=== PATIENT | female | born 1950 ===

== ENCOUNTER 2018-02-27 16:45 | Inpatient (IN) | payer MEDICARE ==
[2018-02-27 17:30] LABS: BASO # 0.1 K/uL (0.0-0.2); BASO % 0.5 % (0.0-2.0); EOS # 0.1 K/uL (0.0-0.7); EOS % 0.5 % (0.0-4.0); HEMOGLOBIN 13.9 g/dL (12.0-16.0); LYMPH # 1.8 K/uL (1.0-4.3); LYMPH % 9.7 % (20.0-40.0); MEAN CORPUSCULAR HEMOGLOBIN 29.6 pg (27.0-31.0); MEAN CORPUSCULAR HGB CONC 32.5 g/dL (33.0-37.0); MEAN PLATELET VOLUME 10.2 fl (7.2-11.7); MONO # 0.8 K/uL (0.0-0.8); MONO % 4.3 % (0.0-10.0); NEUT # 15.7 K/uL (1.8-7.0); PLATELET COUNT 232 K/uL (130-400); RBC 4.69 Mil/uL (3.80-5.20); RED CELL DISTRIBUTION WIDTH 15.2 % (11.5-14.5); WHITE BLOOD COUNT 18.5 K/uL (4.8-10.8)
[2018-02-27 17:37] LABS: INR 0.9; PROTHROMBIN TIME 10.5 Seconds (9.8-13.1)
[2018-02-27 17:42] LABS: ALB/GLOB RATIO 1.2 (1.0-2.1); ALBUMIN 3.8 g/dL (3.5-5.0); ALT/SGPT 71 U/L (9-52); AST/SGOT 36 U/L (14-36); BLOOD UREA NITROGEN 32 mg/dl (7-17); CALCIUM 9.6 mg/dL (8.4-10.2); GFR NON-AFRICAN AMERICAN > 60
--- NOTE | 2018-02-27 17:45 | ED PDOC ---
HPI: SOB/CHF/COPD Time Seen by Provider: 02/27/18 16:53 Chief Complaint (Nursing): Shortness Of Breath Chief Complaint (Provider): Shortness of Breath History Per: Patient History/Exam Limitations: no limitations Onset/Duration Of Symptoms: Hrs Additional Complaint(s): Deo Curtis is a 67 year old female with a past medical history of hypertension and asthma who was brought to the ED by paramedics from [facility] for worsening shortness of breath. Patient was given Nitro, Lasix, and placed on CPAP by medics. Upon arrival, she states that she is feeling much better and denies any chest pain or respiratory distress. Patient offers no other medical complaints at this time. PMD: Ekta Miller Past Medical History Reviewed: Historical Data, Nursing Documentation, Vital Signs Vital Signs: Last Vital Signs Temp Pulse Resp 19 02/27/18 16:55 BP Pulse Ox 100 02/27/18 16:55 - Medical History PMH: Anxiety, Arthritis, Asthma, Bronchitis, Depression, Fractures (Left wrist and right ankle), HTN, Chronic Pain (abdominal pain causing intermittent intractable vomit) Denies: Chronic Kidney Disease - Surgical History Surgical History: - Family History Family History: States: Unknown Family Hx - Social History Current smoker - smoking cessation education provided: No Alcohol: None Drugs: Denies - Immunization History Hx Tetanus Toxoid Vaccination: Yes Hx Influenza Vaccination: No Hx Pneumococcal Vaccination: No - Home Medications Home Medications: Ambulatory Orders Medication Instructions Recorded Acetaminophen/Oxycodone Hydr 1 tab PO Q6 PRN 02/27/18 [Percocet 10/325 mg Tab] Albuterol 0.083% [Albuterol 0.083% 3 ml IH Q8 PRN 02/27/18 Inhal Evette (2.5 mg/3 ml) UD] Albuterol Sulfate [Ventolin Hfa] 2 puff IH Q6 PRN 02/27/18 Alprazolam [Xanax] 2 mg PO Q12 02/27/18 Dexlansoprazole [Dexilant] 60 mg PO DAILY 02/27/18 Escitalopram [Lexapro] 10 mg PO DAILY 02/27/18 Fluticasone Nasal [Flonase] 2 spray FELIX DAILY PRN 02/27/18 Fluticasone/Salmeterol [Advair 1 puff IH Q12 02/27/18 250-50 Diskus] Gabapentin [Neurontin] 300 mg PO HS PRN 02/27/18 Lisinopril/Hydrochlorothiazide 1 tab PO DAILY 02/27/18 [Lisinopril-Hctz 20-25 mg Tab] Metoprolol Succinate XL [Toprol XL] 50 mg PO DAILY 02/27/18 Montelukast [Singulair] 10 mg PO HS 02/27/18 QUEtiapine [Seroquel] 100 mg PO HS 02/27/18 Simvastatin [Zocor] 20 mg PO HS 02/27/18 Umeclidinium [place] [Incruse 1 puff IH DAILY 02/27/18 Ellipta] Zolpidem [Ambien] 10 mg PO HS 02/27/18 amLODIPine [Norvasc] 10 mg PO DAILY 02/27/18 - Allergies Allergies/Adverse Reactions: Allergies Allergy/AdvReac Type Severity Reaction Status Date / Time No Known Allergies Allergy Unverified 02/27/18 16:49 Review of Systems ROS Statement: Except As Marked, All Systems Reviewed And Found Negative Cardiovascular: Negative for: Chest Pain Respiratory: Positive for: Shortness of Breath Physical Exam - Reviewed Nursing Documentation Reviewed: Yes Vital Signs Reviewed: Yes - Physical Exam Appears: Positive for: Well, Non-toxic, No Acute Distress Head Exam: Positive for: ATRAUMATIC, NORMAL INSPECTION, NORMOCEPHALIC Skin: Positive for: Normal Color, Warm, DRY Eye Exam: Positive for: EOMI, Normal appearance, PERRL ENT: Positive for: Normal ENT Inspection Neck: Positive for: Normal, Painless ROM Cardiovascular/Chest: Positive for: Regular Rate, Rhythm. Negative for: Murmur Respiratory: Positive for: Normal Breath Sounds, Other (speaking full sentences ). Negative for: Respiratory Distress Gastrointestinal/Abdominal: Positive for: Normal Exam, Soft. Negative for: Tenderness Back: Positive for: Normal Inspection. Negative for: L CVA Tenderness, R CVA Tenderness Extremity: Positive for: Normal ROM. Negative for: Deformity, Swelling Neurologic/Psych: Positive for: Alert, Oriented. Negative for: Motor/Sensory Deficits - Laboratory Results Result Diagrams: 03/04/18 04:25 03/04/18 04:25 - ECG O2 Sat by Pulse Oximetry: 100 (RA) Pulse Ox Interpretation: Normal - Critical Care Total Time (In Min): 30 Medical Decision Making Medical Decision Making: Time: 16:55 Impression: Asthma, CHF Plan: --EKG --B-Type Natriuretic Peptide --CMP --Magnesium --Troponin --ED Urine Dipstick --CBC --Coags --Chest X-Ray --Blood Culture --Urinalysis EXAM: CR Chest, 1 View. CLINICAL HISTORY: Sob COMPARISON: None provided. FINDINGS: LUNGS: There is evidence for pulmonary venous congestion compatible with CHF. PLEURAL SPACES: No evidence of pleural effusion or pneumothorax. MEDIASTINUM: The cardiac silhouette is enlarged. BONES: No aggressive appearing osseous lesion seen. IMPRESSION: 1. The cardiac silhouette is enlarged. 2. There is evidence for pulmonary venous congestion compatible with CHF. Electronically signed on Feb 27, 2018 9:18:26 PM EST by: Jason Peña M.D., RAVINDRA Certified By [employer] Fellowship Trained MRI and CT Specialist -- Scribe Attestation: Documented by Maryellen Vines, acting as a scribe for Elizabeth Villatoro MD. Provider Scribe Attestation: All medical record entries made by the Scribe were at my direction and personally dictated by me. I have reviewed the chart and agree that the record accurately reflects my personal performance of the history, physical exam, medical decision making, and the department course for this patient. I have also personally directed, reviewed, and agree with the discharge instructions and disposition. Disposition - Clinical Impression Clinical Impression: CHF exacerbation, Leukocytosis - Patient ED Disposition Is Patient to be Admitted: Yes - Disposition Disposition Time: 22:13 Condition: STABLE - Pt Status Changed To: Hospital Disposition Of: Inpatient - Admit Certification Admit to Inpatient:: After my assessment, the patient will require hospitalization for at least two midnights. This is because of the severity of symptoms shown, intensity of services needed, and/or the medical risk in this patient being treated as an outpatient. - POA Present On Arrival: None
[2018-02-27 17:53] LABS: B-TYPE NATRIURETIC PEPTIDE 831 pg/ml (0-900)
[2018-02-27 18:02] LABS: URINE COLOR COLORLESS (YELLOW)
[2018-02-27 18:03] LABS: URINE BILIRUBIN NEGATIVE (NEGATIVE); URINE BLOOD NEGATIVE (NEGATIVE); URINE CLARITY CLEAR (Clear); URINE GLUCOSE (UA) NEG (NEGATIVE); URINE LEUKOCYTE ESTERASE NEG Leu/uL (Negative); URINE PROTEIN NEGATIVE (NEGATIVE); URINE UROBILINOGEN 0.2-1.0 mg/dL (0.2-1.0)
[2018-02-27 18:22] LABS: BANDS 1 % (0-2); METAMYELOCYTE 1 % (0-0); MONOCYTE 6 % (0-10); TOTAL CELLS COUNTED 100
[2018-02-27 18:23] LABS: LYMPHOCYTE 12 % (20-50); NEUTROPHIL 80 % (42-75); PLATELET ESTIMATE NORMAL (NORMAL)
[2018-02-27 18:32] LABS: PARTIAL THROMBOPLASTIN TIME 25.3 Seconds (25.6-37.1)
[2018-02-27] MEDS ORDERED: Azithromycin 500 MG in Sodium Chloride 0.9% 250 ML IV STA (19:04)
[2018-02-27] MEDS ORDERED: cefTRIAXone (Rocephin) 1 gm Inj ONE (19:48)
[2018-02-27] MEDS ORDERED: Nitroglycerin 2% 15 INCH/30 GM TUBE TOP STA (20:03)
[2018-02-27] MEDS ORDERED: Nitroglycerin 2% Ointment Foilpak UD TOP ONE (20:11)
[2018-02-27] MEDS ORDERED: Nitroglycerin 2% Ointment Foilpak UD TOP STA (20:18)
[2018-02-27] MEDS ORDERED: Azithromycin 500 MG IV IVPB ONE (21:35)
[2018-02-27] MEDS ORDERED: Albuterol-Ipratrop 3 mg / 0.5 (3 ml) UD INH STA (23:00)
[2018-02-28] MEDS ORDERED: Nitroglycerin 2% Ointment Foilpak UD TOP STA (02:11)
[2018-02-28] MEDS ORDERED: Albuterol-Ipratrop 3 mg / 0.5 (3 ml) UD INH PRN (06:02)
[2018-02-28 07:41] LABS: BASO # 0.1 K/uL (0.0-0.2); BASO % 0.4 % (0.0-2.0); LYMPH % 6.9 % (20.0-40.0); MEAN CELL VOLUME 91.2 fl (81.0-99.0); MEAN CORPUSCULAR HEMOGLOBIN 29.7 pg (27.0-31.0); MEAN CORPUSCULAR HGB CONC 32.5 g/dL (33.0-37.0); MEAN PLATELET VOLUME 10.5 fl (7.2-11.7); MONO # 0.6 K/uL (0.0-0.8); NEUT # 12.5 K/uL (1.8-7.0); NEUT % 88.7 % (50.0-75.0); RBC 4.04 Mil/uL (3.80-5.20); RED CELL DISTRIBUTION WIDTH 14.8 % (11.5-14.5); WHITE BLOOD COUNT 14.1 K/uL (4.8-10.8)
[2018-02-28 07:51] LABS: LDL CHOLESTEROL 168 mg/dL (0-129)
[2018-02-28 07:58] LABS: ALB/GLOB RATIO 1.2 (1.0-2.1); ALBUMIN 3.2 g/dL (3.5-5.0); ALT/SGPT 50 U/L (9-52); AST/SGOT 21 U/L (14-36); BLOOD UREA NITROGEN 33 mg/dl (7-17); CALCIUM 9.3 mg/dL (8.4-10.2); GFR NON-AFRICAN AMERICAN > 60; HDL CHOLESTEROL 104 MG/DL (30-70)
[2018-02-28 07:59] LABS: T4 5.39 ug/dl (5.5-11.0)
[2018-02-28 08:13] LABS: T3 0.566 nmol/L (1.49-2.60)
[2018-02-28] MEDS: Fluticasone-Salmeterol 250-50mcg Diskus IH SCH (08:55)
[2018-02-28] MEDS: Pantoprazole 40 mg EC Tab PO SCH (08:57)
[2018-02-28] MEDS ORDERED: Metoprolol Succinate 50 mg XL Tab PO SCH (09:00)
--- NOTE | 2018-02-28 09:10 | CP.PCM.HP ---
<Sultan Isela - Last Filed: 02/28/18 10:18> History of Present Illness - History of Present Illness History of Present Illness: CC: shortness of breath HPI: 67 year old female with PMHx HTN, Asthma and depression brought in by EMS from her doctors office for worsening shortness of breath, cough and leg swelling for 1 week. Patient reports she went to [place] [facility] few days ago with similar symptoms and was discharged home. States since then her shortness of breath worsened. Denies any chest pain, nausea, vomiting, fever or chills. Denies any hx CHF in the past. Patient received Nitro, Lasix and placed on CPAP by medics. In ER, patient received duoneb, azithromycin and ceftriaxone. CXR shows enlarged cardiac silhouette and evidence of pulmonary venous congestion compatible with CHF. ROS: All 12 systems reviewed and negative except as mentioned above. PMHx: HTN, Asthma, depression SHx: C-sections x 3 Social hx: Denies smoking cigarettes, drinking EtOH or using drugs Family hx: mother: stroke; brother: stroke and CAD Allergies: NKDA Medications: reviewed Present on Admission - Present on Admission Any Indicators Present on Admission: No Review of Systems - Review of Systems All systems: reviewed and no additional remarkable complaints except Past Patient History - Past Medical History & Family History Past Medical History?: Yes - Past Social History Alcohol: None Drugs: Denies - CARDIAC Hx Hypertension: Yes - PULMONARY Hx Asthma: Yes Hx Bronchitis: Yes - NEUROLOGICAL Hx Neurological Disorder: No - HEENT Hx HEENT Problems: No - RENAL Hx Chronic Kidney Disease: No - ENDOCRINE/METABOLIC Hx Endocrine Disorders: No - HEMATOLOGICAL/ONCOLOGICAL Hx Blood Disorders: No - INTEGUMENTARY Hx Dermatological Problems: No - MUSCULOSKELETAL/RHEUMATOLOGICAL Hx Arthritis: Yes Hx Fractures: Yes (Left wrist and right ankle) - GASTROINTESTINAL Hx Gastrointestinal Disorders: No - GENITOURINARY/GYNECOLOGICAL Hx Genitourinary Disorders: No - PSYCHIATRIC Hx Anxiety: Yes Hx Depression: Yes - SURGICAL HISTORY Hx Surgeries: Yes Hx Section: Yes (3 CS) - ANESTHESIA Hx Anesthesia: Yes Hx Anesthesia Reactions: No Hx Malignant Hyperthermia: No Meds Allergies/Adverse Reactions: Allergies Allergy/AdvReac Type Severity Reaction Status Date / Time No Known Allergies Allergy Unverified 02/27/18 16:49 Physical Exam - Constitutional Appears: Non-toxic, No Acute Distress, Other (obese) - Head Exam Head Exam: NORMAL INSPECTION - Eye Exam Eye Exam: Normal appearance - ENT Exam ENT Exam: Mucous Membranes Moist - Neck Exam Neck exam: Positive for: Normal Inspection. Negative for: Meningismus - Respiratory Exam Respiratory Exam: Prolonged Expiratory Phase. absent: Accessory Muscle Use, Rhonchi, Wheezes, Respiratory Distress Additional comments: on [place] oxygen, speaking full sentences during interview. - Cardiovascular Exam Cardiovascular Exam: REGULAR RHYTHM, +S1, +S2 - GI/Abdominal Exam GI & Abdominal Exam: Normal Bowel Sounds, Soft. absent: Tenderness - Extremities Exam Extremities exam: Positive for: pedal edema (2+ (Left>Right)). Negative for: calf tenderness - Neurological Exam Neurological exam: Alert, Oriented x3 - Psychiatric Exam Psychiatric exam: Normal Affect, Normal Mood - Skin Skin Exam: Normal Color, Warm Results - Vital Signs Recent Vital Signs: Last Vital Signs Temp 97.6 F 02/28/18 06:18 Pulse 83 02/28/18 09:00 Resp 16 02/28/18 09:00 BP 137/65 02/28/18 09:00 Pulse Ox 100 02/28/18 09:00 - Labs Result Diagrams: 02/28/18 06:20 02/28/18 06:20 Labs: Laboratory Results - last 24 hr 02/27/18 02/27/18 02/27/18 17:25 17:25 17:25 WBC 18.5 H RBC 4.69 Hgb 13.9 Hct 42.6 MCV 91.0 MCH 29.6 MCHC 32.5 L RDW 15.2 H Plt Count 232 MPV 10.2 Neut % (Auto) 85.0 H Lymph % (Auto) 9.7 L Fleming % (Auto) 4.3 Eos % (Auto) 0.5 Baso % (Auto) 0.5 Neut # (Auto) 15.7 H Lymph # (Auto) 1.8 Fleming # (Auto) 0.8 Eos # (Auto) 0.1 Baso # (Auto) 0.1 Neutrophils % (Manual) 80 H Band Neutrophils % 1 Lymphocytes % (Manual) 12 L Monocytes % (Manual) 6 Metamyelocytes % 1 H Platelet Estimate Normal PT INR APTT Sodium 141 Potassium 4.1 Chloride 104 Carbon Dioxide 31 H Anion Gap 10 BUN 32 H Creatinine 0.8 Est GFR ( Amer) > 60 Est GFR (Non-Af Amer) > 60 Random Glucose 118 H Calcium 9.6 Magnesium 2.4 H Total Bilirubin 0.4 AST 36 ALT 71 H Alkaline Phosphatase 68 Troponin I 0.0140 NT-Pro-B Natriuret Pep 831 Total Protein 6.9 Albumin 3.8 Globulin 3.1 Albumin/Globulin Ratio 1.2 Triglycerides Cholesterol LDL Cholesterol Direct HDL Cholesterol Vitamin B12 Free T4 Thyroxine (T4) Total T3 TSH 3rd Generation Urine Color Urine Clarity Urine pH Ur Specific [place] Urine Protein Urine Glucose (UA) Urine Ketones Urine Blood Urine Nitrate Urine Bilirubin Urine Urobilinogen Ur Leukocyte Esterase Urine RBC (Auto) Urine Microscopic WBC 02/27/18 02/27/18 02/28/18 17:25 17:40 06:20 WBC 14.1 H RBC 4.04 Hgb 12.0 Hct 36.9 MCV 91.2 MCH 29.7 MCHC 32.5 L RDW 14.8 H Plt Count 198 MPV 10.5 Neut % (Auto) 88.7 H Lymph % (Auto) 6.9 L Fleming % (Auto) 4.0 Eos % (Auto) 0.0 Baso % (Auto) 0.4 Neut # (Auto) 12.5 H Lymph # (Auto) 1.0 Fleming # (Auto) 0.6 Eos # (Auto) 0.0 Baso # (Auto) 0.1 Neutrophils % (Manual) Band Neutrophils % Lymphocytes % (Manual) Monocytes % (Manual) Metamyelocytes % Platelet Estimate PT 10.5 INR 0.9 APTT 25.3 L Sodium Potassium Chloride Carbon Dioxide Anion Gap BUN Creatinine Est GFR ( Amer) Est GFR (Non-Af Amer) Random Glucose Calcium Magnesium Total Bilirubin AST ALT Alkaline Phosphatase Troponin I NT-Pro-B Natriuret Pep Total Protein Albumin Globulin Albumin/Globulin Ratio Triglycerides Cholesterol LDL Cholesterol Direct HDL Cholesterol Vitamin B12 Free T4 Thyroxine (T4) Total T3 TSH 3rd Generation Urine Color Colorless Urine Clarity Clear Urine pH 8.0 Ur Specific [place] 1.008 Urine Protein Negative Urine Glucose (UA) Neg Urine Ketones Negative Urine Blood Negative Urine Nitrate Negative Urine Bilirubin Negative Urine Urobilinogen 0.2-1.0 Ur Leukocyte Esterase Neg Urine RBC (Auto) 1 Urine Microscopic WBC 1 02/28/18 02/28/18 06:20 06:20 WBC RBC Hgb Hct MCV MCH MCHC RDW Plt Count MPV Neut % (Auto) Lymph % (Auto) Fleming % (Auto) Eos % (Auto) Baso % (Auto) Neut # (Auto) Lymph # (Auto) Fleming # (Auto) Eos # (Auto) Baso # (Auto) Neutrophils % (Manual) Band Neutrophils % Lymphocytes % (Manual) Monocytes % (Manual) Metamyelocytes % Platelet Estimate PT INR APTT Sodium 138 Potassium 4.3 Chloride 100 Carbon Dioxide 33 H Anion Gap 9 L BUN 33 H Creatinine 0.7 Est GFR ( Amer) > 60 Est GFR (Non-Af Amer) > 60 Random Glucose 166 H Calcium 9.3 Magnesium Total Bilirubin 0.4 AST 21 ALT 50 Alkaline Phosphatase 52 Troponin I NT-Pro-B Natriuret Pep Total Protein 5.9 L Albumin 3.2 L Globulin 2.7 Albumin/Globulin Ratio 1.2 Triglycerides 99 Cholesterol 263 H LDL Cholesterol Direct 168 H HDL Cholesterol 104 H Vitamin B12 242 Free T4 0.79 Thyroxine (T4) 5.39 L Total T3 0.566 L TSH 3rd Generation 0.06 L Urine Color Urine Clarity Urine pH Ur Specific [place] Urine Protein Urine Glucose (UA) Urine Ketones Urine Blood Urine Nitrate Urine Bilirubin Urine Urobilinogen Ur Leukocyte Esterase Urine RBC (Auto) Urine Microscopic WBC Assessment & Plan - Assessment and Plan (Free Text) Assessment: 67 year old female with PMHx HTN, Asthma and depression brought in by EMS from her doctors office for worsening shortness of breath, cough and leg swelling for 1 week. In ER, patient received duoneb, azithromycin and ceftriaxone. CXR shows enlarged cardiac silhouette and evidence of pulmonary venous congestion compatible with CHF. Patient is admitted for worsening shortness of breath. Plan: Shortness of breath likely secondary to new onset CHF vs asthma exacerbation. -Admit to Telemetry -Stable BP now (elevated BP in ER), afebrile -wbc 18.5, repeat 14.1 this morning -EKG: NSR @[address]/T waves. -CXR: IMPRESSION: The cardiac silhouette is enlarged. There is evidence for pulmonary venous congestion compatible with CHF. -ProBNP 831 -Troponin I x 1 neg -s/p ceftriaxone and azithromycin in ER -c/w duoneb q6hr prn -Cardiology consult, Dr. Whiting, f/u rec - F/U LABS, echocardiogram HTN -resume home medications -Asthma -resume home medications Depression -Resume home medications Code status -Full code Patient seen, examined and plan discussed with Dr. Greg Weiss, [id number] <Sincere Garza - Last Filed: 03/01/18 13:25> Results - Vital Signs Recent Vital Signs: Last Vital Signs Temp 98 F 03/01/18 12:40 Pulse 81 03/01/18 12:40 Resp 20 03/01/18 12:40 BP 143/81 03/01/18 12:40 Pulse Ox 98 03/01/18 12:40 - Labs Result Diagrams: 03/01/18 04:30 03/01/18 04:30 Labs: Laboratory Results - last 24 hr 02/28/18 02/28/18 03/01/18 06:20 17:00 04:30 WBC 10.2 RBC 3.88 Hgb 11.7 L Hct 35.3 MCV 91.0 MCH 30.3 MCHC 33.3 RDW 15.1 H Plt Count 178 MPV 10.3 Neut % (Auto) 78.1 H Lymph % (Auto) 15.4 L Fleming % (Auto) 5.8 Eos % (Auto) 0.3 Baso % (Auto) 0.4 Neut # (Auto) 8.0 H Lymph # (Auto) 1.6 Fleming # (Auto) 0.6 Eos # (Auto) 0.0 Baso # (Auto) 0.0 pCO2 pO2 HCO3 ABG pH ABG Total CO2 ABG O2 Saturation ABG Base Excess Erik Test ABG Potassium A-a O2 Difference Glucose Lactate FiO2 Sodium Potassium Chloride Carbon Dioxide Anion Gap BUN Creatinine Est GFR ( Amer) Est GFR (Non-Af Amer) Random Glucose Calcium Phosphorus Magnesium Total Bilirubin AST ALT Alkaline Phosphatase Troponin I < 0.0120 Total Protein Albumin Globulin Albumin/Globulin Ratio Free T3 pg/mL 1.94 L Arterial Blood Potassium 03/01/18 03/01/18 04:30 08:28 WBC RBC Hgb Hct MCV MCH MCHC RDW Plt Count MPV Neut % (Auto) Lymph % (Auto) Fleming % (Auto) Eos % (Auto) Baso % (Auto) Neut # (Auto) Lymph # (Auto) Fleming # (Auto) Eos # (Auto) Baso # (Auto) pCO2 44 pO2 79 L HCO3 28.9 H ABG pH 7.44 ABG Total CO2 31.3 H ABG O2 Saturation 97.7 ABG Base Excess 5.1 H Erik Test Yes ABG Potassium 3.6 A-a O2 Difference 16.0 Glucose 158 H Lactate 2.5 H FiO2 21.0 Sodium 136 136.0 Potassium 4.2 Chloride 99 107.0 Carbon Dioxide 31 H Anion Gap 10 BUN 33 H Creatinine 0.9 Est GFR ( Amer) > 60 Est GFR (Non-Af Amer) > 60 Random Glucose 101 Calcium 9.5 Phosphorus 5.2 H Magnesium 2.4 H Total Bilirubin 0.5 AST 19 ALT 45 Alkaline Phosphatase 49 Troponin I Total Protein 5.7 L Albumin 3.1 L Globulin 2.6 Albumin/Globulin Ratio 1.2 Free T3 pg/mL Arterial Blood Potassium 3.6 Assessment & Plan - Assessment and Plan (Free Text) Assessment: Patient was personally seen and examined by me in rounds with residents. Available labs and diagnostic data reviewed. Case, Patient's condition and management plan discussed with residents in alf ds. Agree with resident's progress note. Plan: As ordered.
--- NOTE | 2018-02-28 09:15 | CARD ---
APPROVED REPORT Date of service: 02/27/2018 EKG Measurement Heart [id number] <Conclusion> Normal sinus rhythm Normal ECG
--- NOTE | 2018-02-28 11:16 | RAD ---
Date of service: 02/27/2018 HISTORY: SOB COMPARISON: No prior. FINDINGS: LUNGS: No active pulmonary disease. PLEURA: No significant pleural effusion identified, no pneumothorax apparent. CARDIOVASCULAR: No atherosclerotic calcification present No radiographic findings to suggest acute or significant cardiovascular disease. OSSEOUS STRUCTURES: No significant abnormalities. VISUALIZED UPPER ABDOMEN: Normal. OTHER FINDINGS: None. IMPRESSION: No active disease.
[2018-02-28] MEDS ORDERED: Albuterol-Ipratrop 3 mg / 0.5 (3 ml) UD ONE (16:59)
[2018-02-28] MEDS: Enoxaparin 40 mg Syringe SC SCH (17:01)
[2018-02-28] MEDS: Albuterol-Ipratrop 3 mg / 0.5 (3 ml) UD INH SCH (17:07)
--- NOTE | 2018-03-01 00:02 | CON ---
DATE: 02/28/2018 CARDIAC CONSULTATION REASON FOR CONSULTATION: Shortness of breath. HISTORY OF PRESENT ILLNESS: The patient is a 67-year-old female who has a history of bronchial asthma, presents with shortness of breath and cough. The patient has no known prior cardiac history except for history of hypertension. The patient denies any chest pain at this time. The patient complains of bilateral leg swelling. SOCIAL HISTORY: Nonsmoker, nondrinker. MEDICATIONS: Albuterol inhaler every 4-6 hours, hydrochlorothiazide 25 mg once a day, Lexapro 10 mg once a day, Lipitor 20 mg once a day, Norvasc 10 mg once a day, Neurontin 300 mg at bedtime, Seroquel 100 mg once a day, Protonix 40 mg once a day, Toprol-XL 50 mg once a day, Zestril 20 mg once a day. REVIEW OF SYSTEMS: No fever or chills. No dizziness or syncope. No retrosternal chest pain. PHYSICAL EXAMINATION: GENERAL: The patient is an elderly female who does not appear to be in acute distress. VITAL SIGNS: Blood pressure 137/65, heart rate 83, temperature 97.6, respirations 16. HEENT: Normocephalic. CHEST: Minimal bilateral rhonchi. HEART: S1 and S2 are regular. ABDOMEN: Soft. EXTREMITIES: 1+ pitting edema. LABORATORY DATA: Recent hemoglobin and hematocrit are 12 and 36.9, white count 14.1, platelet count 198,000. Yesterday's white count was 18.5. Today's SMA-7: Sodium 138, potassium 4.2, chloride 100, CO2 of 32, glucose 166, BUN 33, creatinine 0.7. cholesterol is 168, total cholesterol 263, and HDL cholesterol is 104. These three are elevated. TSH level is 0.06, thyroxine 5.39, and total T3 is 0.566. These three are below normal. Free T4 is within normal limit. INR 0.9. EKG revealed normal sinus rhythm at a rate of 88. Chest x-ray revealed mild cardiomegaly and prominent bronchovascular markings. ASSESSMENT: 1. Exacerbation of bronchial asthma. 2. Rule out right-sided failure. 3. Consider underlying pneumonia. 4. Hyperlipidemia. 5. Rule out deep venous thrombosis. 6. Systemic hypertension. RECOMMENDATIONS: Continue current hydrochlorothiazide 25 mg once a day, Lipitor 20 mg once a day, Norvasc 10 mg once a day. May hold Toprol-XL for now. Continue Zestril 20 mg once a day. Start Lovenox 40 mg subcutaneously daily. Obtain venous Doppler of lower extremities and will review the echocardiographic study performed today. Andrea Whiting MD
[2018-03-01] MEDS: Fluticasone-Salmeterol 250-50mcg Diskus IH SCH ×3 (00:15→21:09)
--- NOTE | 2018-03-01 02:35 | CARD ---
APPROVED REPORT Date of service: 02/28/2018 EXAM: Two-dimensional and M-mode echocardiogram with Doppler and color Doppler. Other Information Quality : AverageRhythm : NSR INDICATION Dyspnea 2D DIMENSIONS IVSd1.32 (0.7-1.1cm)LVDd4.03 (3.9-5.9cm) LVOT Diameter2.00 (1.8-2.4cm)PWd1.14 (0.7-1.1cm) IVSs1.32 (0.8-1.2cm)LVDs3.03 (2.5-4.0cm) FS (%) 24.7 %PWs1.06 (0.8-1.2cm) M-Mode DIMENSIONS Left Atrium (MM)4.06 (2.5-4.0cm)IVSd0.91 (0.7-1.1cm) Aortic Root3.56 (2.2-3.7cm)LVDd4.50 (4.0-5.6cm) Aortic Cusp Exc.1.56 (1.5-2.0cm)PWd1.13 (0.7-1.1cm) IVSs1.22 cmFS (%) 43 % LVDs2.56 (2.0-3.8cm)PWs1.44 cm Mitral Valve MV E Wewiuifc33.1cm/sMV DECEL [id number] A Etvnxtcu43.0cm/s MV URO60uoX/A ratio0.8MVA (PHT)3.70cm2 TDI Lateral E' Peak V9.37cm/sMedial E' Peak V9.78cm/sE/Lateral E'8.0 E/Medial E'7.7 LEFT VENTRICLE The left ventricle is normal size. There is borderline to mild concentric left ventricular hypertrophy. The left ventricular systolic function is normal. The estimated ejection fraction is 55-60% No regional wall motion abnormalities noted.. Transmitral Doppler flow pattern is Grade I-abnormal relaxation pattern. No left ventricle thrombus noted on this study. There is no ventricular septal defect visualized. There is no left ventricular aneurysm. There is no mass noted in the left ventricle. RIGHT VENTRICLE The right ventricle is normal size. There is normal right ventricular wall thickness. The right ventricular systolic function is normal. ATRIA The left atrium is mildly dilated. The right atrium size is normal. The interatrial septum is intact with no evidence for an atrial septal defect. AORTIC VALVE The aortic valve is normal in structure. No aortic regurgitation is present. There is no aortic valvular stenosis. There is no aortic valvular vegetation. MITRAL VALVE The mitral valve is normal in structure. There is no evidence of mitral valve prolapse. There is no mitral valve stenosis. There is no mitral valve regurgitation noted. TRICUSPID VALVE The tricuspid valve is normal in structure. There is no tricuspid valve regurgitation noted. There is no tricuspid valve prolapse or vegetation. There is no tricuspid valve stenosis. PULMONIC VALVE The pulmonary valve is normal in structure. There is no pulmonic valvular regurgitation. There is no pulmonic valvular stenosis. GREAT VESSELS The aortic root is normal in size. The ascending aorta is normal in size. The pulmonary artery is normal. The IVC is normal in size and collapses >50% with inspiration. PERICARDIAL EFFUSION There is no pericardial effusion. There is no pleural effusion. <Conclusion> There is borderline to mild concentric left ventricular hypertrophy. The estimated ejection fraction is 55-60% Transmitral Doppler flow pattern is Grade I-abnormal relaxation pattern. The left atrium is mildly dilated. There is no tricuspid valve regurgitation noted.
[2018-03-01] MEDS: Albuterol-Ipratrop 3 mg / 0.5 (3 ml) UD INH SCH ×4 (02:41→19:00)
[2018-03-01 05:46] LABS: BASO % 0.4 % (0.0-2.0); EOS % 0.3 % (0.0-4.0); HEMOGLOBIN 11.7 g/dL (12.0-16.0); LYMPH # 1.6 K/uL (1.0-4.3); LYMPH % 15.4 % (20.0-40.0); MEAN CORPUSCULAR HEMOGLOBIN 30.3 pg (27.0-31.0); MEAN CORPUSCULAR HGB CONC 33.3 g/dL (33.0-37.0); MEAN PLATELET VOLUME 10.3 fl (7.2-11.7); MONO # 0.6 K/uL (0.0-0.8); MONO % 5.8 % (0.0-10.0); NEUT % 78.1 % (50.0-75.0); NRBC % 0.1 % (0.0-0.0); RBC 3.88 Mil/uL (3.80-5.20); RED CELL DISTRIBUTION WIDTH 15.1 % (11.5-14.5); WHITE BLOOD COUNT 10.2 K/uL (4.8-10.8)
[2018-03-01 05:59] LABS: ALB/GLOB RATIO 1.2 (1.0-2.1); ALBUMIN 3.1 g/dL (3.5-5.0); ALT/SGPT 45 U/L (9-52); AST/SGOT 19 U/L (14-36); BLOOD UREA NITROGEN 33 mg/dl (7-17); CALCIUM 9.5 mg/dL (8.4-10.2); GFR NON-AFRICAN AMERICAN > 60
--- NOTE | 2018-03-01 08:54 | CP.PCM.PN ---
<OlneyGarret willtan - Last Filed: 03/01/18 08:51> Subjective - Date & Time of Evaluation Date of Evaluation: 03/01/18 Time of Evaluation: 07:45 - Subjective Subjective: Patient seen and examined with Dr. Garza this morning. No acute overnight event. Reports she is feeling better with improved shortness of breath and cough. Denies any fever, chills, chest pain or calf pain. Objective - Vital Signs/Intake and Output Vital Signs (last 24 hours): Temp Pulse Resp BP Pulse Ox 97.9 F 78 20 113/68 97 03/01/18 08:46 03/01/18 08:46 03/01/18 08:46 03/01/18 08:46 03/01/18 08:46 - Medications Medications: Current Medications Acetaminophen (Tylenol 325mg Tab) 650 mg PO Q6 PRN PRN Reason: Headache Last Admin: 02/28/18 12:03 Dose: 650 mg Albuterol/Ipratropium (Duoneb 3 Mg/0.5 Mg (3 Ml) Ud) 3 ml INH RQ6 [facility] Last Admin: 03/01/18 08:16 Dose: 3 ml Alprazolam (Xanax) 1 mg PO Q12 PRN PRN Reason: Anxiety Atorvastatin Calcium (Lipitor) 20 mg PO HS [facility] Last Admin: 03/01/18 00:14 Dose: 20 mg Bisoprolol Fumarate (Zebeta) 5 mg PO DAILY [facility] Enoxaparin Sodium (Lovenox) 40 mg SC DAILY [facility]; Protocol Last Admin: 02/28/18 17:01 Dose: 40 mg Escitalopram Oxalate (Lexapro) 10 mg PO DAILY [facility] Last Admin: 02/28/18 08:55 Dose: 10 mg Fluticasone Propionate (Flonase) 2 spr FELIX DAILY PRN PRN Reason: Nasal congestion Gabapentin (Neurontin) 300 mg PO HS PRN PRN Reason: neuropathic pain Hydrochlorothiazide (Hydrodiuril) 25 mg PO DAILY [facility] Last Admin: 02/28/18 08:58 Dose: 25 mg Lisinopril (Zestril) 20 mg PO DAILY [facility] Last Admin: 02/28/18 08:54 Dose: 20 mg Montelukast Sodium (Singulair) 10 mg PO HS [facility] Last Admin: 03/01/18 00:13 Dose: 10 mg Pantoprazole Sodium (Protonix Ec Tab) 40 mg PO DAILY [facility] Last Admin: 02/28/18 08:57 Dose: 40 mg Quetiapine Fumarate (Seroquel) 100 mg PO HS [facility] Last Admin: 03/01/18 00:14 Dose: 100 mg Fluticasone/Salmeterol (Advair Diskus 250/50) 1 puff IH Q12 [facility] Last Admin: 03/01/18 00:15 Dose: 1 inhaler - Labs Labs: 03/01/18 04:30 03/01/18 04:30 PT 10.5 Seconds (9.8-13.1) 02/27/18 17:25 INR 0.9 02/27/18 17:25 APTT 25.3 Seconds (25.6-37.1) L 02/27/18 17:25 - Constitutional Appears: No Acute Distress - Head Exam Head Exam: NORMAL INSPECTION - Eye Exam Eye Exam: Normal appearance - ENT Exam ENT Exam: Mucous Membranes Moist - Neck Exam Neck Exam: Normal Inspection - Respiratory Exam Respiratory Exam: Clear to Ausculation Bilateral, Prolonged Expiratory Phase, NORMAL BREATHING PATTERN. absent: Rhonchi, Wheezes, Respiratory Distress - Cardiovascular Exam Cardiovascular Exam: REGULAR RHYTHM, +S1, +S2 - GI/Abdominal Exam GI & Abdominal Exam: Soft, Normal Bowel Sounds. absent: Tenderness - Extremities Exam Extremities Exam: Normal Capillary Refill, Pedal Edema (improved from yesterday). absent: Calf Tenderness - Neurological Exam Neurological Exam: Alert, Awake, Oriented x3 - Psychiatric Exam Psychiatric exam: Normal Affect, Normal Mood - Skin Skin Exam: Normal Color, Warm Assessment and Plan - Assessment and Plan (Free Text) Assessment: 67 year old female with PMHx HTN, Asthma and depression brought in by EMS from her doctors office for worsening shortness of breath, cough and leg swelling for 1 week. In ER, patient received duoneb, azithromycin and ceftriaxone. CXR shows enlarged cardiac silhouette and evidence of pulmonary venous congestion compatible with CHF. Patient is admitted for worsening shortness of breath. Plan: Shortness of breath likely secondary to new onset CHF vs asthma exacerbation. -Stable BP, afebrile -wbc trending down 10.2 today. -EKG: NSR @[address]/T waves. -CXR: IMPRESSION: no acute disease -ProBNP 831 -Troponin I x 1 neg -s/p ceftriaxone and azithromycin in ER -Hold abx since cxr neg, vitals stable and wbc is WNL now. -c/w duoneb q6hr -Cardiology consult, Dr. Whiting, rec appreciated. -ECHO: conclusion: there is border line to mild concentric left ventricular hypertrophy. Estimated EF is 55-60%. The left atrium is mildly dilated. No tricuspid valve regurgitation noted. -F/U doppler US. HTN -stop toprol -start Bisoprolol 5 mg -Stop amlodipine 10 mg. -Asthma -resume home medications Depression -Resume home medications Code status -Full code Patient seen, examined and plan discussed with Dr. Greg Weiss, [id number] <Sincere Garza - Last Filed: 03/01/18 13:23> Objective - Vital Signs/Intake and Output Vital Signs (last 24 hours): Temp Pulse Resp BP Pulse Ox 98 F 81 20 143/81 98 03/01/18 12:40 03/01/18 12:40 03/01/18 12:40 03/01/18 12:40 03/01/18 12:40 - Medications Medications: Current Medications Acetaminophen (Tylenol 325mg Tab) 650 mg PO Q6 PRN PRN Reason: Headache Last Admin: 02/28/18 12:03 Dose: 650 mg Albuterol/Ipratropium (Duoneb 3 Mg/0.5 Mg (3 Ml) Ud) 3 ml INH RQ6 [facility] Last Admin: 03/01/18 08:16 Dose: 3 ml Alprazolam (Xanax) 1 mg PO Q12 PRN PRN Reason: Anxiety Atorvastatin Calcium (Lipitor) 20 mg PO HS [facility] Last Admin: 03/01/18 00:14 Dose: 20 mg Bisoprolol Fumarate (Zebeta) 5 mg PO DAILY [facility] Last Admin: 03/01/18 08:58 Dose: 5 mg Enoxaparin Sodium (Lovenox) 40 mg SC DAILY [facility]; Protocol Last Admin: 03/01/18 08:56 Dose: 40 mg Escitalopram Oxalate (Lexapro) 10 mg PO DAILY [facility] Last Admin: 03/01/18 08:56 Dose: 10 mg Fluticasone Propionate (Flonase) 2 spr FELIX DAILY PRN PRN Reason: Nasal congestion Gabapentin (Neurontin) 300 mg PO HS PRN PRN Reason: neuropathic pain Hydrochlorothiazide (Hydrodiuril) 25 mg PO DAILY [facility] Last Admin: 03/01/18 08:56 Dose: 25 mg Lisinopril (Zestril) 20 mg PO DAILY [facility] Last Admin: 03/01/18 08:57 Dose: 20 mg Montelukast Sodium (Singulair) [address] [facility] Last Admin: 03/01/18 00:13 Dose: 10 mg Pantoprazole Sodium (Protonix Ec Tab) 40 mg PO DAILY [facility] Last Admin: 03/01/18 08:57 Dose: 40 mg Quetiapine Fumarate (Seroquel) 100 mg PO HS [facility] Last Admin: 03/01/18 00:14 Dose: 100 mg Fluticasone/Salmeterol (Advair Diskus 250/50) 1 puff IH Q12 [facility] Last Admin: 03/01/18 08:54 Dose: 1 inhaler - Labs Labs: 03/01/18 04:30 03/01/18 04:30 PT 10.5 Seconds (9.8-13.1) 02/27/18 17:25 INR 0.9 02/27/18 17:25 APTT 25.3 Seconds (25.6-37.1) L 02/27/18 17:25 Assessment and Plan - Assessment and Plan (Free Text) Assessment: Patient was personally seen and examined by me in rounds with residents. Available labs and diagnostic data reviewed. Case, Patient's condition and management plan discussed with residents in round s. Agree with resident's progress note. Plan: As ordered.
[2018-03-01] MEDS: Enoxaparin 40 mg Syringe SC SCH (08:56)
[2018-03-01] MEDS: Pantoprazole 40 mg EC Tab PO SCH (08:57)
[2018-03-01 10:00] LABS: ABG ALLEN TEST YES; ARTERIAL BLOOD GAS HCO3 28.9 mmol/L (21-28); ARTERIAL BLOOD GAS O2 SAT 97.7 % (95-98); ARTERIAL BLOOD GAS PCO2 44 mm/Hg (35-45); ARTERIAL BLOOD GAS PH 7.44 (7.35-7.45); ARTERIAL BLOOD GAS PO2 79 mm/Hg (80-100); ARTERIAL BLOOD GAS TCO2 31.3 mmol/L (22-28)
--- NOTE | 2018-03-01 16:26 | PN ---
DATE: 03/01/2018 SUBJECTIVE: The patient denies any chest pain or shortness of breath and cough has improved as well as slight improvement in the leg swelling. PHYSICAL EXAMINATION: VITAL SIGNS: Blood pressure 115/68, heart rate 98, temperature 97.9, respiration 20. HEENT: Normocephalic. CHEST: Bilateral rhonchi. HEART: S1 and S2 regular. EXTREMITIES: 1+ pitting edema. LABORATORY DATA: Today's SMA-7 is within normal limits except for carbon dioxide of 31, and BUN of 33. Magnesium is 2.4 slightly elevated. Today's hemoglobin and hematocrit 11.7 and 35.3, white count and platelet count are within normal limit. Echocardiographic study revealed ejection fraction in the range of 55% to 60%, grade I of normal relaxation pattern mildly dilated left atrium. Venous Doppler of lower extremity is still pending. ASSESSMENT: 1. Exacerbation of bronchial asthma 2. Rule out right side heart failure. 3. Hyperlipidemia. 4. Rule out deep venous thrombosis. 5. Systemic hypertension. RECOMMENDATIONS: Continue current albuterol inhaler, continue hydrochlorothiazide 25 mg daily, Lipitor 20 mg once a daily, Lovenox 40 mg subcutaneously once daily, Seroquel 100 mg once a day, and Zebeta 5 mg once a day and Zestril 20 mg once a day. Awaiting venous Doppler lower extremities to be performed today. Andrea Whiting MD
[2018-03-02] MEDS: Albuterol-Ipratrop 3 mg / 0.5 (3 ml) UD INH SCH ×4 (00:59→19:37)
[2018-03-02 05:47] LABS: BASO % 0.1 % (0.0-2.0); EOS % 0.5 % (0.0-4.0); LYMPH # 1.6 K/uL (1.0-4.3); LYMPH % 17.3 % (20.0-40.0); MEAN CELL VOLUME 91.4 fl (81.0-99.0); MEAN CORPUSCULAR HEMOGLOBIN 30.3 pg (27.0-31.0); MEAN CORPUSCULAR HGB CONC 33.1 g/dL (33.0-37.0); MEAN PLATELET VOLUME 10.2 fl (7.2-11.7); MONO # 0.6 K/uL (0.0-0.8); MONO % 6.6 % (0.0-10.0); NEUT % 75.5 % (50.0-75.0); RBC 3.95 Mil/uL (3.80-5.20); WHITE BLOOD COUNT 9.3 K/uL (4.8-10.8)
[2018-03-02 05:52] LABS: ALB/GLOB RATIO 1.2 (1.0-2.1); ALBUMIN 3.4 g/dL (3.5-5.0); ALT/SGPT 45 U/L (9-52); AST/SGOT 18 U/L (14-36); BLOOD UREA NITROGEN 30 mg/dl (7-17); CALCIUM 9.7 mg/dL (8.4-10.2); GFR NON-AFRICAN AMERICAN > 60
[2018-03-02] MEDS: Fluticasone-Salmeterol 250-50mcg Diskus IH SCH ×2 (09:05→21:00)
[2018-03-02] MEDS: Enoxaparin 40 mg Syringe SC SCH (09:08)
[2018-03-02] MEDS: Pantoprazole 40 mg EC Tab PO SCH (09:09)
--- NOTE | 2018-03-02 14:02 | PN ---
DATE: 03/02/2018 SUBJECTIVE: The patient seen and examined. Interim events noted. Consults noted and appreciated. Cardiology followup and interventions noted and appreciated. The patient remains in progressive care unit, on telemetry monitoring. Feels much better. Shortness of breath improved. No chest pain. Leg swelling also improved, although still has minimum . PHYSICAL EXAMINATION: GENERAL: The patient is in no acute distress. VITAL SIGNS: Stable. HEART: S1 and S2, normal and regular. LUNGS: Good bilateral air exchange. ABDOMEN: Soft, nontender. EXTREMITIES: The patient has minimal edema, but much better than it was. No calf swelling. No tenderness. No acute ischemia. ASSISTANT DEPARTMENT MANAGER: Exam is essentially unchanged. DIAGNOSTIC DATA: Repeat available diagnostic data reviewed. ASSESSMENT AND PLAN: Overall, the patient's general medical condition is stable and improving. Telemetry monitoring does not reveal significant arrhythmia. Plan as ordered. Sincere Garza MD
--- NOTE | 2018-03-02 17:32 | PN ---
DATE: 03/02/2018 SUBJECTIVE: The patient still experiencing shortness of breath and mild cough. Leg swelling has improved. PHYSICAL EXAMINATION: VITAL SIGNS: Blood pressure 137/66, heart rate 70, temperature 98.9, and respiration 18. HEENT: Normocephalic. CHEST: Bilateral rhonchi. HEART: S1 and S2 regular. EXTREMITIES: 1+ pitting edema. LABORATORY DATA: Today's SMA-7: Sodium 134, potassium 4.4, chloride 102, CO2 of 32, glucose 100, BUN 30, and creatinine 0.8. Today's hemoglobin, hematocrit, white count and platelet count are within normal limit. Venous Doppler of the lower extremities was performed. The reports are still pending. ASSESSMENT: 1. Exacerbation of bronchial asthma. 2. Consider right-sided heart failure. 3. Hyperlipidemia. 4. Systemic hypertension. RECOMMENDATIONS: Continue current hydrochlorothiazide 25 mg once daily, Lipitor 20 mg once a day, Lovenox 40 mg subcutaneously once daily, Zebeta 5 mg daily, and Zestril 20 mg once a day. I will follow the venous Doppler lower extremity study report. Andrea Whiting MD
[2018-03-03] MEDS: Albuterol-Ipratrop 3 mg / 0.5 (3 ml) UD INH SCH ×4 (01:05→19:36)
[2018-03-03] MEDS: Fluticasone-Salmeterol 250-50mcg Diskus IH SCH ×2 (08:54→21:04)
[2018-03-03] MEDS: Enoxaparin 40 mg Syringe SC SCH (08:56)
[2018-03-03] MEDS: Pantoprazole 40 mg EC Tab PO SCH (08:56)
--- NOTE | 2018-03-03 10:36 | PN ---
DATE: 03/03/2018 SUBJECTIVE: The patient is seen and examined. Interim events noted. Consults noted and appreciated. Cardiology followup and intervention noted and appreciated. The patient remains in progressive care unit and telemetry monitoring. The patient is sleeping, arousable. Feels okay. Breathing improving. No chest pain. No shortness of breath. PHYSICAL EXAMINATION GENERAL: The patient is in no acute distress. VITAL SIGNS: Stable. HEART: S1 and S2 normal and regular. LUNGS: Improved bilateral air exchange. ABDOMEN: Soft and nontender. EXTREMITIES: No edema, no calf swelling, no tenderness, no acute ischemia. CENTRAL NERVOUS SYSTEM: Exam is essentially unchanged. DIAGNOSTIC DATA: Available diagnostic data reviewed. Telemetry monitoring does not reveal significant arrhythmia. ASSESSMENT AND PLAN: Overall, the patient is stable and improving. Plan as ordered. Sincere Garza MD
--- NOTE | 2018-03-03 13:29 | PN ---
DATE: 03/03/2018 SUBJECTIVE: The patient's shortness of breath and cough has improved. She did complain of leg swelling by the ankle. PHYSICAL EXAMINATION: VITAL SIGNS: Blood pressure 154/82, heart rate 79, temperature 98, and respirations 18. HEENT: Normocephalic. CHEST: Minimal bibasilar rhonchi. HEART: S1 and S2 regular. ABDOMEN: Soft. EXTREMITIES: 1+ ankle edema. DIAGNOSTICS: Venous Doppler, lower extremity, report is still pending. ASSESSMENT: 1. Exacerbation of bronchial asthma. 2. Consider right-sided heart failure. 3. Hyperlipidemia. 4. Systemic hypertension. 5. Rule out deep vein thrombosis. RECOMMENDATIONS: Continue current albuterol inhaler every 6 hours. Continue hydrochlorothiazide 25 mg once daily, Lipitor 20 mg once a day, Lexapro 10 mg once a day, subcutaneous Lovenox 40 mg daily, Protonix 40 mg p.o. once a day, Zebeta 5 mg daily, and Zestril 20 mg daily. I will follow the venous Doppler of the lower extremity report. Andrea Whiting MD
[2018-03-04] MEDS: Albuterol-Ipratrop 3 mg / 0.5 (3 ml) UD INH SCH ×3 (01:09→13:42)
[2018-03-04 05:13] VITALS: RESP 18
[2018-03-04 05:36] LABS: HEMOGLOBIN 12.5 g/dL (12.0-16.0); MEAN CORPUSCULAR HEMOGLOBIN 30.5 pg (27.0-31.0); MEAN CORPUSCULAR HGB CONC 33.5 g/dL (33.0-37.0); RBC 4.09 Mil/uL (3.80-5.20); RED CELL DISTRIBUTION WIDTH 14.9 % (11.5-14.5); WHITE BLOOD COUNT 9.8 K/uL (4.8-10.8)
[2018-03-04 05:53] LABS: ALB/GLOB RATIO 1.2 (1.0-2.1); ALBUMIN 3.6 g/dL (3.5-5.0); ALT/SGPT 43 U/L (9-52); AST/SGOT 16 U/L (14-36); BLOOD UREA NITROGEN 38 mg/dl (7-17); CALCIUM 9.7 mg/dL (8.4-10.2); GFR NON-AFRICAN AMERICAN 50
--- NOTE | 2018-03-04 09:21 | US ---
Date of service: 03/02/2018 PROCEDURE: Bilateral lower extremity venous duplex Doppler. HISTORY: r/o evaluate for DVT COMPARISON: None available. TECHNIQUE: Bilateral common femoral, superficial femoral, popliteal and posterior tibial veins were evaluated. Flow was assessed with color Doppler, compressibility, assessment of phasic flow and augmentation response. FINDINGS: COMMON FEMORAL VEIN: Right CFV: Unremarkable. Left CFV: Unremarkable. SUPERFICIAL FEMORAL VEIN: Right SFV: Unremarkable. Left SFV: Unremarkable. POPLITEAL VEIN: Right Popliteal: Unremarkable. Left Popliteal: Unremarkable. POSTERIOR TIBIAL VEIN: Right PTV: Unremarkable. Left PTV: Unremarkable. OTHER FINDINGS: None. IMPRESSION: No evidence of deep venous thrombosis.
[2018-03-04] MEDS: Fluticasone-Salmeterol 250-50mcg Diskus IH SCH (10:14)
[2018-03-04] MEDS: Pantoprazole 40 mg EC Tab PO SCH (10:15)
--- NOTE | 2018-03-04 11:17 | PN ---
DATE: 03/04/2018 SUBJECTIVE: The patient seen and examined. Interim events noted. Consults noted and appreciated. Cardiology followup and intervention noted and appreciated. The patient remains in regular progressive care unit with telemetry monitoring. Feels much better. No chest pain. No shortness of breath. PHYSICAL EXAMINATION: GENERAL: The patient is in no acute distress. VITAL SIGNS: Stable. HEART: S1 and S2, normal, regular. LUNGS: Good bilateral air exchange. ABDOMEN: Soft, nontender. EXTREMITIES: No edema. No calf swelling. No tenderness. No acute ischemia. CENTRAL NERVOUS SYSTEM: Essentially unchanged. DIAGNOSTIC DATA: Available diagnostic data reviewed. Telemetry monitoring does not show significant arrhythmias. ASSESSMENT AND PLAN: Overall, the patient's general medical condition is stable. Plan as ordered. Sincere Garza MD
[2018-03-04 12:10] VITALS: BP 117/74; PULSE 69; TEMP 98.3
--- NOTE | 2018-03-04 19:24 | PN ---
DATE: 03/04/2018 SUBJECTIVE: The patient is experiencing productive cough. She denies any chest pain. Leg swelling is improved. PHYSICAL EXAMINATION VITAL SIGNS: Blood pressure 116/74, heart rate 69, temperature 98.3, respirations 18. HEENT: Normocephalic. CHEST: Scattered bilateral wheezing. HEART: S1 and S2 regular. EXTREMITIES: Trace leg edema. LABORATORY DATA: Today's hemoglobin, hematocrit, white count and platelet count are within normal limits. Today's SMA-7 is within normal limits except for glucose of 112 and BUN of 38. Official report of venous Doppler of the lower extremities, no evidence of DVT. ASSESSMENT: 1. Exacerbation of bronchial asthma. 2. Right-sided heart failure. 3. Systemic hypertension. 4. Hyperlipidemia. RECOMMENDATIONS: Continue current Advair, albuterol, hydrochlorothiazide 25 mg once a day, Lipitor 20 mg once a day, Seroquel 100 mg once a day, Singulair 10 mg once a day, Zestril 20 mg once a day, Zebeta 5 mg daily. Andrea Whiting MD
[2018-03-09 10:22] VITALS: O2SAT 100
--- NOTE | 2018-03-11 13:55 | PQF ---
PROVIDER RESPONSE TEXT: Moderate persistent asthma with exacerbation of symptoms REVIEWER QUERY TEXT: Asthma Specificity and Type PLEASE CLARIFY THE TYPE AND SEVERITY OF ASTHMA. Asthma is documented in the Medical Record. Please specify the type and severity of asthma and indic ate if this is associated with exacerbation or status asthmaticus. Such as: -- Mild intermittent -- Mild persistent -- Moderate persistent -- Severe persistent -- Exercise induced bronchospasm -- Cough variant asthma -- Other, please specify The patient's Clinical Indicators include: PROGRESS NOTE : EXACERBATION OF BRONCHIAL ASTHMA . Query created by: Carmencita Velazquez on 03/06/2018 5:15 PM Electronically signed by: Sincere Garza 03/11/2018 1:52 PM
--- NOTE | 2018-03-11 13:55 | PQF ---
PROVIDER RESPONSE TEXT: Acute diastolic CHF CHF probably secondary to HTN REVIEWER QUERY TEXT: CHF Acuity and Type COULD YOU PLEASE CONFIRM THE TYPE OF CHF AND ACUITY. D/C SUMMARY STILL PENDING. Congestive Heart Failure is documented in the Medical Record. Please document the type and acuity (in cludes probable or suspected) Such as: Type: -- Systolic -- Diastolic -- Combined -- Other, please specify Acuity: -- Acute -- Chronic -- Acute on chronic -- Other, please specify Also please document the underlying cause of the CHF (includes probable or suspected) The patient's Clinical Indicators include: CXR: EVIDENCE FOR PULMONARY VENOUS CONGESTIO COMPATIBLE WITH CHF. Query created by: Carmencita Velazquez on 03/06/2018 4:38 PM Electronically signed by: Sincere Garza 03/11/2018 1:52 PM
== END 2018-03-04 14:55 | disposition home or self-care (01) | DRG 202 ==
LOC: H.ER 16:45 → H.ERHOLD 22:13 → H.TEL 02-28 22:40
PROVIDERS: ADMIT Internal Medicine; ATTEND Internal Medicine
DX: J45.41 Moderate persistent asthma with (acute) exacerbation (principal); I50.31 Acute diastolic (congestive) heart failure; I11.0 Hypertensive heart disease with heart failure; Z82.3 Family history of stroke; Z82.49 Family history of ischemic heart disease and other diseases of the circulatory system; F32.9 Major depressive disorder, single episode, unspecified; F41.9 Anxiety disorder, unspecified; G89.29 Other chronic pain; J44.9 Chronic obstructive pulmonary disease, unspecified; E78.5 Hyperlipidemia, unspecified; M19.90 Unspecified osteoarthritis, unspecified site; Z79.899 Other long term (current) drug therapy

== ENCOUNTER 2018-05-11 23:08 | Observation (INO) | payer MEDICARE ==
[2018-05-11] MEDS ORDERED: Sodium Chloride 0.9% 1,000 ML IV STA (23:19)
[2018-05-11 23:49] LABS: WHITE BLOOD COUNT 10.1 K/uL (4.8-10.8)
[2018-05-11 23:50] LABS: BASO # 0.1 K/uL (0.0-0.2); BASO % 0.5 % (0.0-2.0); EOS % 0.1 % (0.0-4.0); HEMOGLOBIN 12.9 g/dL (12.0-16.0); LYMPH # 1.4 K/uL (1.0-4.3); LYMPH % 13.9 % (20.0-40.0); MEAN CELL VOLUME 91.3 fl (81.0-99.0); MEAN CORPUSCULAR HEMOGLOBIN 30.8 pg (27.0-31.0); MEAN CORPUSCULAR HGB CONC 33.8 g/dL (33.0-37.0); MEAN PLATELET VOLUME 10.3 fl (7.2-11.7); MONO # 0.8 K/uL (0.0-0.8); MONO % 7.4 % (0.0-10.0); NEUT # 7.9 K/uL (1.8-7.0); NEUT % 78.1 % (50.0-75.0); NRBC % 0.1 % (0.0-0.0); RBC 4.19 Mil/uL (3.80-5.20); RED CELL DISTRIBUTION WIDTH 15.1 % (11.5-14.5)
--- NOTE | 2018-05-11 23:55 | ED PDOC ---
HPI:Nausea, Vomiting, Diarrhea Time Seen by Provider: 05/11/18 23:15 Chief Complaint (Nursing): GI Problem Chief Complaint (Provider): GI Problem History Per: Patient History/Exam Limitations: no limitations Onset/Duration Of Symptoms: Days (x 2) Current Symptoms Are (Timing): Still Present Quality Of Discomfort: Cramping, "Pain" Associated Symptoms: Vomiting, Diarrhea Additional Complaint(s): 67 year old female with no significant medical history presents to the ED with vomiting, diarrhea and cramping abdominal pain for two days. Vomit and diarrhea are both non-bloody and non-bilious. Patient reports no other associated symptoms. Denies fever, chills, chest pain, cough and shortness of breath. PMD: Dr. Almanzar Past Medical History Reviewed: Historical Data Vital Signs: Last Vital Signs Temp 98.9 F 05/11/18 23:12 Pulse 92 H 05/11/18 23:12 Resp 20 05/11/18 23:12 BP 120/46 L 05/11/18 23:12 Pulse Ox 99 05/11/18 23:12 - Medical History PMH: Anxiety, Arthritis, Asthma, Bronchitis, Depression, Fractures (Left wrist and right ankle), HTN, Chronic Pain (abdominal pain causing intermittent intractable vomit) Denies: HIV, Chronic Kidney Disease - Surgical History Surgical History: - Family History Family History: States: Unknown Family Hx - Immunization History Hx Tetanus Toxoid Vaccination: Yes Hx Influenza Vaccination: No Hx Pneumococcal Vaccination: No - Home Medications Home Medications: Ambulatory Orders Medication Instructions Recorded Acetaminophen/Oxycodone Hydr 1 tab PO Q6 PRN 02/27/18 [Percocet 10/325 mg Tab] Albuterol 0.083% [Albuterol 0.083% 3 ml IH Q8 PRN 02/27/18 Inhal Evette (2.5 mg/3 ml) UD] Albuterol Sulfate [Ventolin Hfa] 2 puff IH Q6 PRN 02/27/18 Alprazolam [Xanax] 2 mg PO Q12 02/27/18 Dexlansoprazole [Dexilant] 60 mg PO DAILY 02/27/18 Escitalopram [Lexapro] 10 mg PO DAILY 02/27/18 Fluticasone Nasal [Flonase] 2 spray FELIX DAILY PRN 02/27/18 Fluticasone/Salmeterol [Advair 1 puff IH Q12 02/27/18 250-50 Diskus] Gabapentin [Neurontin] 300 mg PO HS PRN 02/27/18 Lisinopril/Hydrochlorothiazide 1 tab PO DAILY 02/27/18 [Lisinopril-Hctz 20-25 mg Tab] Metoprolol Succinate XL [Toprol XL] 50 mg PO DAILY 02/27/18 Montelukast [Singulair] 10 mg PO HS 02/27/18 QUEtiapine [Seroquel] 100 mg PO HS 02/27/18 Simvastatin [Zocor] 20 mg PO HS 02/27/18 Umeclidinium [place] [Incruse 1 puff IH DAILY 02/27/18 Ellipta] Zolpidem [Ambien] 10 mg PO HS 02/27/18 amLODIPine [Norvasc] 10 mg PO DAILY 02/27/18 Dicyclomine [Bentyl] 20 mg PO Q12 PRN #20 tab 05/12/18 Nitrofurantoin Macrocrystals 100 mg PO BID #14 cap 05/12/18 [Macrobid] Ondansetron ODT [Zofran ODT] 4 mg PO Q6 PRN #10 odt 05/12/18 - Allergies Allergies/Adverse Reactions: Allergies Allergy/AdvReac Type Severity Reaction Status Date / Time No Known Allergies Allergy Unverified 05/11/18 23:12 Review of Systems ROS Statement: Except As Marked, All Systems Reviewed And Found Negative Constitutional: Negative for: Fever, Chills, Sweats Respiratory: Negative for: Cough, Shortness of Breath Gastrointestinal: Positive for: Vomiting, Abdominal Pain (cramping), Diarrhea Physical Exam - Reviewed Nursing Documentation Reviewed: Yes Vital Signs Reviewed: Yes - Physical Exam Appears: Positive for: No Acute Distress, Uncomfortable Head Exam: Positive for: ATRAUMATIC, NORMAL INSPECTION, NORMOCEPHALIC Skin: Positive for: Normal Color, Warm, Dry. Negative for: Rash Eye Exam: Positive for: EOMI, Normal appearance, PERRL Neck: Positive for: Normal, Painless ROM, Supple Cardiovascular/Chest: Positive for: Regular Rate, Rhythm. Negative for: Murmur Respiratory: Positive for: Normal Breath Sounds. Negative for: Wheezing, R espiratory Distress Gastrointestinal/Abdominal: Positive for: Normal Exam, Soft. Negative for: Tenderness, Mass, Guarding, Rebound Back: Positive for: Normal Inspection. Negative for: L CVA Tenderness, R CVA Tenderness Extremity: Positive for: Normal ROM (x 4). Negative for: Deformity Neurological/Psych: Positive for: Awake, Alert, Normal Tone, Oriented. Negative for: Motor/Sensory Deficits - Laboratory Results Result Diagrams: 05/11/18 23:20 05/11/18 23:20 - ECG O2 Sat by Pulse Oximetry: 99 (RA) Pulse Ox Interpretation: Normal Medical Decision Making Medical Decision Makin:16 Impression: 67 year old female with acute gastroenteritis Initial Plan: --EKG --CMP --CBC --Lipase --NS IV 1,000 mls --Zofran 4 mg IV --Glucose --Urine dip 01:02 --Toradol 15 mg IM 02:02 Patient continues to report pain despite dose of Toradol. CT will be obtained. 4 mg of Morphine ordered. 03:56 CT Abdomen & Pelvis w/ contrast FINDINGS: LUNG BASES: The heart is moderately enlarged as visualized. The visualized lung bases are clear. LIVER: There is diffuse fatty infiltration of liver. GALLBLADDER AND BILE DUCTS: The gallbladder appears within normal limits. No radioopaque gallstones are seen. No biliary ductal dilatation is evident. PANCREAS: There is partial fatty replacement of the pancreas. SPLEEN: Unremarkable. ADRENAL GLANDS: Unremarkable. KIDNEYS, URETERS, AND BLADDER: There are a few punctate nonobstructing left renal calculi. No hydronephrosis bilaterally. Bladder is decompressed. STOMACH AND BOWEL: Colon is decompressed, limiting evaluation. No bowel obstruction. APPENDIX: Normal appendix is present in the right lower quadrant. PERITONEUM: No free fluid. No free air. LYMPH NODES: No lymphadenopathy is evident. REPRODUCTIVE: Unremarkable as visualized. VASCULATURE: Mild atherosclerotic calcifications of the abdominal aorta and branches are present. BONES: Mild multilevel degenerative spine changes. IMPRESSION: 1. The heart is moderately enlarged as visualized. 2. There is diffuse fatty infiltration of liver. 3. There is partial fatty replacement of the pancreas. 4. There are a few punctate nonobstructing left renal calculi. 5. Additional incidental and nonemergent findings as described above. 04:23 Patient continues to complain of pain. GI cocktail ordered. 05:24 Patient continues to complain of persistent pain despite multiple administrations of pain medications. She will be admitted with diagnosis of UTI. 06:[address] Walter. Accepted by Dr. Cohen for admission to observation. Scribe Attestation: Documented by Lorena Sterling, acting as a scribe Oxana Dennis MD. Provider Scribe Attestation: All medical record entries made by the Scribe were at my direction and personally dictated by me. I have reviewed the chart and agree that the record accurately reflects my personal performance of the history, physical exam, medical decision making, and the department course for this patient. I have also personally directed, reviewed, and agree with the discharge instructions and disposition. Disposition - Clinical Impression Clinical Impression: Gastroenteritis, UTI (urinary tract infection) - Patient ED Disposition Is Patient to be Admitted: No - Disposition Disposition Time: 05:24 Condition: STABLE
[2018-05-12 00:03] LABS: ALB/GLOB RATIO 1.4 (1.0-2.1); ALBUMIN 4.7 g/dL (3.5-5.0); BLOOD UREA NITROGEN 22 mg/dl (7-17); CALCIUM 10.5 mg/dL (8.4-10.2); GFR NON-AFRICAN AMERICAN > 60; LIPASE 83 U/L (23-300)
[2018-05-12 00:16] LABS: ALT/SGPT 17 U/L (9-52); AST/SGOT 32 U/L (14-36)
[2018-05-12] MEDS ORDERED: Morphine 4 MG/ML VIAL ONE (02:04)
[2018-05-12] MEDS ORDERED: Morphine 4 MG/ML VIAL IVP ONE (02:15)
[2018-05-12] MEDS ORDERED: Iohexol 300 100 ML IJ ONE (02:43)
[2018-05-12] MEDS ORDERED: Sodium Chloride 0.9% 50 ML IV ONE (02:43)
[2018-05-12 03:15] LABS: SQUAMOUS EPITHIAL 4 /hpf (0-5); URINE BACTERIA OCC (<OCC); URINE BILIRUBIN NEGATIVE (NEGATIVE); URINE BLOOD NEGATIVE (NEGATIVE); URINE CLARITY TURBID (Clear); URINE COLOR AMBER (YELLOW); URINE GLUCOSE (UA) NEG (NEGATIVE); URINE LEUKOCYTE ESTERASE NEG Leu/uL (Negative); URINE PROTEIN 100 mg/dL (NEGATIVE); URINE UROBILINOGEN 0.2-1.0 mg/dL (0.2-1.0)
[2018-05-12] MEDS ORDERED: cefTRIAXone (Rocephin) 1 gm Inj ONE (03:45)
[2018-05-12] MEDS ORDERED: Alum-Mag Hydrox-Simethicone Susp (30 mL) PO ONE (04:23)
[2018-05-12] MEDS ORDERED: DiphenhydrAMINE 50 mg/ml Inj IV STA (05:17)
[2018-05-12] MEDS ORDERED: Promethazine 25MG/50ML NS IVPB STA (05:23)
[2018-05-12] MEDS ORDERED: DiphenhydrAMINE 50 mg/ml Inj ONE (06:07)
--- NOTE | 2018-05-12 11:14 | CT ---
Date of service: 05/12/2018 PROCEDURE: CT Abdomen and Pelvis with contrast HISTORY: pancreatitis COMPARISON: None. TECHNIQUE: Contrast dose: 90 mL Radiation dose: Total exam DLP = 875.01 mGy-cm. This CT exam was performed using one or more of the following dose reduction techniques: Automated exposure control, adjustment of the mA and/or kV according to patient size, and/or use of iterative reconstruction technique. FINDINGS: LOWER THORAX: Evaluation of the lung bases reveals no evidence of infiltrate or effusion. Chronic left rib fractures are noted. Distal esophagus is unremarkable. Visualized stomach is normal in outline without distention or wall thickening. LIVER: Liver is fatty infiltrated without evidence of focal mass or intrahepatic ductal dilatation. GALLBLADDER AND BILE DUCTS: Unremarkable. PANCREAS: No pancreatic enlargement or peripancreatic inflammatory changes are seen to suggest pancreatitis. No pancreatic mass is noted. SPLEEN: Unremarkable. ADRENALS: Unremarkable. No mass. KIDNEYS AND URETERS: A few possible nonobstructing left renal calculi. No evidence of hydronephrosis, perinephric change, or renal mass. Ureters are unremarkable. VASCULATURE: Unremarkable. No aortic aneurysm. Mild atherosclerotic change. BOWEL: Fluid-filled small bowel is noted without significant dilatation. There is additionally some mild fluid-filled loops of colon in the right colon. No appreciable colonic wall thickening, small bowel obstruction, or pericolonic inflammatory change is seen. APPENDIX: Normal appendix. PERITONEUM: No appreciable ascites or free intraperitoneal air. Tiny fat containing umbilical hernia without bowel. LYMPH NODES: Unremarkable. No enlarged lymph nodes. BLADDER: Unremarkable. REPRODUCTIVE: Unremarkable. BONES: Degenerative changes in the spine. No compression fracture. OTHER FINDINGS: No inguinal hernias are seen. IMPRESSION: No appreciable acute inflammatory process in the abdomen or pelvis. No CT scan evidence of bowel obstruction, pancreatitis, or colitis. This agrees with preliminary report.
--- NOTE | 2018-05-12 12:08 | CP.PCM.HP ---
History of Present Illness - History of Present Illness History of Present Illness: 67 yo female PMHx of anxiety, depression, htn, insomnia, gerd presented to ED with abdominal pain that was not relieved with IV pain medications. Patient was admitted for further evaluation, management and observation. Patient seen and examined at bedside. continue to have abdominal pain though states hungry has been npo no other complaints at this time all: as per chart meds: as per chart fam hx: non contributory Present on Admission - Present on Admission Any Indicators Present on Admission: No Review of Systems - Review of Systems All systems: reviewed and no additional remarkable complaints except (mentioned above) Past Patient History - Past Medical History & Family History Past Medical History?: Yes - Past Social History Smoking Status: Never Smoked - CARDIAC Hx Hypertension: Yes - PULMONARY Hx Asthma: Yes Hx Bronchitis: Yes - NEUROLOGICAL Hx Neurological Disorder: No - HEENT Hx HEENT Problems: No - RENAL Hx Chronic Kidney Disease: No - ENDOCRINE/METABOLIC Hx Endocrine Disorders: No - HEMATOLOGICAL/ONCOLOGICAL Hx Human Immunodeficiency Virus (HIV): No - INTEGUMENTARY Hx Dermatological Problems: No - MUSCULOSKELETAL/RHEUMATOLOGICAL Hx Arthritis: Yes Hx Fractures: Yes (Left wrist and right ankle) - GASTROINTESTINAL Hx Gastrointestinal Disorders: No - GENITOURINARY/GYNECOLOGICAL Hx Genitourinary Disorders: No - PSYCHIATRIC Hx Anxiety: Yes Hx Depression: Yes - SURGICAL HISTORY Hx Surgeries: Yes Hx Section: Yes (3 CS) - ANESTHESIA Hx Anesthesia: Yes Hx Anesthesia Reactions: No Hx Malignant Hyperthermia: No Meds Home Medications: Home Medication List Medication Instructions Recorded Confirmed Type Dicyclomine [Bentyl] 20 mg PO Q12 PRN #20 tab 05/12/18 Rx Nitrofurantoin Macrocrystals 100 mg PO BID #14 cap 05/12/18 Rx [Macrobid] Ondansetron ODT [Zofran ODT] 4 mg PO Q6 PRN #10 odt 05/12/18 Rx Atropine/Diphenoxylate [Lonox 1 tab PO Q6 PRN #20 tab 05/13/18 Rx 0.025 MG-2.5 MG] Allergies/Adverse Reactions: Allergies Allergy/AdvReac Type Severity Reaction Status Date / Time No Known Allergies Allergy Unverified 05/11/18 23:12 Physical Exam - Constitutional Appears: Non-toxic, No Acute Distress - Head Exam Head Exam: NORMAL INSPECTION - Eye Exam Eye Exam: Normal appearance - Respiratory Exam Respiratory Exam: NORMAL BREATHING PATTERN - Cardiovascular Exam Cardiovascular Exam: +S1, +S2 - GI/Abdominal Exam GI & Abdominal Exam: Normal Bowel Sounds, Soft, Tenderness (mild, diffuse) - Neurological Exam Neurological exam: Alert, Oriented x3 - Psychiatric Exam Psychiatric exam: Normal Affect, Normal Mood - Skin Skin Exam: Normal Color, Warm Results - Vital Signs Recent Vital Signs: Last Vital Signs Temp 98.4 F 05/12/18 09:30 Pulse 71 05/12/18 09:30 Resp 19 05/12/18 09:30 BP 154/80 H 05/12/18 09:30 Pulse Ox 96 05/12/18 09:30 - Labs Result Diagrams: 05/13/18 06:20 05/13/18 06:20 Labs: Laboratory Results - last 24 hr 05/11/18 05/11/18 05/11/18 23:20 23:20 23:25 WBC 10.1 RBC 4.19 Hgb 12.9 Hct 38.3 MCV 91.3 MCH 30.8 MCHC 33.8 RDW 15.1 H Plt Count 264 MPV 10.3 Neut % (Auto) 78.1 H Lymph % (Auto) 13.9 L [place] % (Auto) 7.4 Eos % (Auto) 0.1 Baso % (Auto) 0.5 Neut # (Auto) 7.9 H Lymph # (Auto) 1.4 [place] # (Auto) 0.8 Eos # (Auto) 0.0 Baso # (Auto) 0.1 Sodium 143 Potassium 3.3 L Chloride 102 Carbon Dioxide 24 Anion Gap 20 BUN 22 H Creatinine 0.8 Est GFR ( Amer) > 60 Est GFR (Non-Af Amer) > 60 POC Glucose (mg/dL) 147 H Random Glucose 131 H Calcium 10.5 H Total Bilirubin 0.8 AST 32 ALT 17 Alkaline Phosphatase 71 Total Protein 8.1 Albumin 4.7 Globulin 3.5 Albumin/Globulin Ratio 1.4 Lipase 83 Urine Color Urine Clarity Urine pH Ur Specific [place] Urine Protein Urine Glucose (UA) Urine Ketones Urine Blood Urine Nitrate Urine Bilirubin Urine Urobilinogen Ur Leukocyte Esterase Urine RBC (Auto) Urine Microscopic WBC Ur Squamous Epith Cells Urine Bacteria 05/12/18 02:35 WBC RBC Hgb Hct MCV MCH MCHC RDW Plt Count MPV Neut % (Auto) Lymph % (Auto) [place] % (Auto) Eos % (Auto) Baso % (Auto) Neut # (Auto) Lymph # (Auto) [place] # (Auto) Eos # (Auto) Baso # (Auto) Sodium Potassium Chloride Carbon Dioxide Anion Gap BUN Creatinine Est GFR ( Amer) Est GFR (Non-Af Amer) POC Glucose (mg/dL) Random Glucose Calcium Total Bilirubin AST ALT Alkaline Phosphatase Total Protein Albumin Globulin Albumin/Globulin Ratio Lipase Urine Color Jeanna Urine Clarity Turbid Urine pH 5.0 Ur Specific [place] 1.027 Urine Protein 100 Urine Glucose (UA) Neg Urine Ketones 20 Urine Blood Negative Urine Nitrate Negative Urine Bilirubin Negative Urine Urobilinogen 0.2-1.0 Ur Leukocyte Esterase Neg Urine RBC (Auto) 2 Urine Microscopic WBC 11 H Ur Squamous Epith Cells 4 Urine Bacteria Occ H Assessment & Plan (1) Intractable abdominal pain Status: Acute (2) Anxiety Status: Acute Priority: Low - Assessment and Plan (Free Text) Plan: monitor vitals monitor labs Cont meds Cont tx advance diet as tolerated IV fluids rest of plan as ordered
[2018-05-12] MEDS: Morphine 4 MG/ML VIAL IVP PRN ×2 (14:37→20:39)
[2018-05-12] MEDS: Lactated Ringer's 1,000 ML IV SCH (17:09)
[2018-05-12] MEDS ORDERED: Pneumococcal 23-Valent Vaccine IM ONE (17:30)
--- NOTE | 2018-05-12 18:38 | CARD ---
APPROVED REPORT Date of service: 05/11/2018 EKG Measurement Heart [id number] <Conclusion> Normal sinus rhythm Nonspecific ST abnormality Abnormal ECG
[2018-05-12] MEDS: Alum-Mag Hydrox-Simethicone Susp (30 mL) PO PRN (19:23)
[2018-05-12] MEDS: Fluticasone-Salmeterol 250-50mcg Diskus IH SCH (20:45)
[2018-05-12] MEDS: Ciprofloxacin 400mg/200ml D5W 400 MG/200 ML BAG IVPB SCH (20:48)
[2018-05-13] MEDS: Alum-Mag Hydrox-Simethicone Susp (30 mL) PO PRN (03:23)
[2018-05-13] MEDS: Lactated Ringer's 1,000 ML IV SCH ×2 (05:08→09:52)
[2018-05-13 07:25] LABS: HEMOGLOBIN 10.8 g/dL (12.0-16.0); MEAN CELL VOLUME 92.2 fl (81.0-99.0); MEAN CORPUSCULAR HEMOGLOBIN 31.4 pg (27.0-31.0); MEAN CORPUSCULAR HGB CONC 34.1 g/dL (33.0-37.0); RBC 3.43 Mil/uL (3.80-5.20); RED CELL DISTRIBUTION WIDTH 15.2 % (11.5-14.5); WHITE BLOOD COUNT 7.1 K/uL (4.8-10.8)
[2018-05-13 08:48] VITALS: BP 151/82; PULSE 79; RESP 20; TEMP 99.5; O2SAT 91
[2018-05-13] MEDS ORDERED: Patient's Own Med (Lisinopril/Hydrochlorothiazide [Lisinopril-Hctz 20-25 Mg Tab] 1 TAB) PO SCH (09:00)
[2018-05-13] MEDS ORDERED: Metoprolol Succinate 50 mg XL Tab PO SCH (09:00)
[2018-05-13] MEDS ORDERED: Pantoprazole 40 mg EC Tab PO SCH (09:00)
[2018-05-13 09:16] LABS: ALB/GLOB RATIO 1.1 (1.0-2.1); ALBUMIN 3.2 g/dL (3.5-5.0); ALT/SGPT 22 U/L (9-52); AST/SGOT 18 U/L (14-36); BLOOD UREA NITROGEN 15 mg/dl (7-17); CALCIUM 9.8 mg/dL (8.4-10.2); GFR NON-AFRICAN AMERICAN > 60
[2018-05-13] MEDS: Fluticasone-Salmeterol 250-50mcg Diskus IH SCH (09:36)
[2018-05-13] MEDS: Ciprofloxacin 400mg/200ml D5W 400 MG/200 ML BAG IVPB SCH (09:40)
[2018-05-13] MEDS ORDERED: Potassium Chloride 20 mEq ER Tab PO ONE (10:00)
--- NOTE | 2018-05-13 10:05 | CP.PCM.CON ---
History of Present Illness - History of Present Illness History of Present Illness: Psychiatry consult note CC: Abdominal pain HPI: 67 yo female admitted w/ vomiting, diarrhea and abdominal pain. Patient reports a history of depression and anxiety. She discussed that she feels depressed when she thinks of her son who >20 years ago. She reports feeling anxious due to concerns about her acute medical issues and pain. She denies significant worsening of her depression. NO AH/VH/SI/HI/paranoia/delusions. PMHx: Arthritis, Asthma, Bronchitis, Fractures (Left wrist and right ankle), HTN, Chronic Pain (abdominal pain causing intermittent intractable vomit) PPHx: Currently outpatient tx w/ Dr. Sage, on Lexapro and Xanax. ALL: NKDA MSE: A + O x 3, calm, cooperative, speech normal, good eye contact, mood/affect- neutral, no AH/VH/SI/HI, fair I/J, thought process- linear/coherent; thought content- no delusions Impression: 67 yo female w/ h/o depression and anxiety, does not require acute inpatient psychiatric admission at this time. -Can continue current medications; psychoeducation provided to the patient that her Xanax should be tapered gradually with her outpatient psychiatrist Past Patient History - Past Medical History & Family History Past Medical History?: Yes - Past Social History Smoking Status: Never Smoked - CARDIAC Hx Hypercholesterolemia: Yes Hx Hypertension: Yes - PULMONARY Hx Asthma: Yes Hx Bronchitis: Yes Hx Chronic Obstructive Pulmonary Disease (COPD): Yes - NEUROLOGICAL Hx Neurological Disorder: No - HEENT Hx HEENT Problems: No Hx Deafness: (Decreased hearing left ear) - RENAL Hx Chronic Kidney Disease: No - ENDOCRINE/METABOLIC Hx Endocrine Disorders: No - HEMATOLOGICAL/ONCOLOGICAL Hx Human Immunodeficiency Virus (HIV): No - INTEGUMENTARY Hx Dermatological Problems: No - MUSCULOSKELETAL/RHEUMATOLOGICAL Hx Arthritis: Yes Hx Falls: No Hx Fractures: Yes (Left wrist and right ankle) - GASTROINTESTINAL Hx Gastrointestinal Disorders: No - GENITOURINARY/GYNECOLOGICAL Hx Genitourinary Disorders: No - PSYCHIATRIC Hx Anxiety: Yes Hx Depression: Yes Hx Substance Use: No - SURGICAL HISTORY Hx Surgeries: Yes Hx Section: Yes (3 CS) Other/Comment: Right ankle SX - ANESTHESIA Hx Anesthesia: Yes Hx Anesthesia Reactions: No Hx Malignant Hyperthermia: No Meds Home Medications: Home Medication List Medication Instructions Recorded Confirmed Type Dicyclomine [Bentyl] 20 mg PO Q12 PRN #20 tab 05/12/18 Rx Nitrofurantoin Macrocrystals 100 mg PO BID #14 cap 05/12/18 Rx [Macrobid] Ondansetron ODT [Zofran ODT] 4 mg PO Q6 PRN #10 odt 05/12/18 Rx Allergies/Adverse Reactions: Allergies Allergy/AdvReac Type Severity Reaction Status Date / Time No Known Allergies Allergy Unverified 05/11/18 23:12 - Medications Medications: Current Medications Al Hydrox/Mg Hydrox/Simethicone (Maalox Plus 30 Ml) 30 ml PO Q4 PRN PRN Reason: Indigestion / Heartburn Last Admin: 05/13/18 03:23 Dose: 30 ml Alprazolam (Xanax) 2 mg PO Q12H [facility] Last Admin: 05/13/18 09:46 Dose: 2 mg Amlodipine Besylate (Norvasc) 10 mg PO DAILY [facility] Last Admin: 05/13/18 09:39 Dose: 10 mg Atorvastatin Calcium (Lipitor) 10 mg PO HS [facility] Last Admin: 05/12/18 22:12 Dose: 10 mg Escitalopram Oxalate (Lexapro) 10 mg PO DAILY [facility] Last Admin: 05/13/18 09:38 Dose: 10 mg Famotidine (Pepcid) 20 mg IVP Q12 [facility] Last Admin: 05/13/18 09:46 Dose: 20 mg Gabapentin (Neurontin) 300 mg PO HS PRN PRN Reason: neuropathic pain Hydrochlorothiazide (Hydrodiuril) 25 mg PO DAILY [facility] Last Admin: 05/13/18 09:52 Dose: 25 mg Lactated Ringer's (Lactated Ringer's) 1,000 mls @ 100 mls/hr IV .Q10H [facility] Last Admin: 05/13/18 09:52 Dose: Not Given Ciprofloxacin (Cipro 400mg/200ml Dsw) 400 mg in 200 mls @ 200 mls/hr IVPB Q12 [facility]; Protocol Last Admin: 05/13/18 09:40 Dose: 200 mls/hr Ketorolac Tromethamine (Toradol) 15 mg IVP Q6 PRN PRN Reason: Pain, moderate (4-7) Lisinopril (Zestril) 20 mg PO DAILY [facility] Last Admin: 05/13/18 09:38 Dose: 20 mg Metoprolol Succinate (Toprol Xl) 50 mg PO DAILY [facility] Last Admin: 05/13/18 09:37 Dose: 50 mg Montelukast Sodium (Singulair) 10 mg PO HS [facility] Last Admin: 05/12/18 22:12 Dose: 10 mg Morphine Sulfate (Morphine) 2 mg IVP Q6 PRN PRN Reason: Pain, severe (8-10) Last Admin: 05/12/18 20:39 Dose: 2 mg Pantoprazole Sodium (Protonix Ec Tab) 40 mg PO DAILY [facility] Last Admin: 05/13/18 09:39 Dose: 40 mg Fluticasone/Salmeterol (Advair Diskus 250/50) 1 puff IH Q12 [facility] Last Admin: 05/13/18 09:36 Dose: 1 puff Zolpidem Tartrate (Ambien) 5 mg PO HS [facility] Last Admin: 05/12/18 22:15 Dose: 5 mg Results - Vital Signs Recent Vital Signs: Last Vital Signs Temp 99.5 F 05/13/18 08:48 Pulse 79 05/13/18 09:39 Resp 20 05/13/18 08:48 BP 151/82 H 05/13/18 09:39 Pulse Ox 91 L 05/13/18 08:48 - Labs Result Diagrams: 05/13/18 06:20 05/13/18 06:20 Labs: Laboratory Results - last 24 hr 05/13/18 05/13/18 06:20 06:20 WBC 7.1 RBC 3.43 L Hgb 10.8 L D Hct 31.6 L MCV 92.2 MCH 31.4 H MCHC 34.1 RDW 15.2 H Plt Count 191 Sodium 145 Potassium 3.1 L Chloride 110 H Carbon Dioxide 26 Anion Gap 12 BUN 15 Creatinine 0.8 Est GFR ( Amer) > 60 Est GFR (Non-Af Amer) > 60 Random Glucose 119 H Calcium 9.8 Phosphorus 3.2 Magnesium 2.1 Total Bilirubin 0.3 AST 18 ALT 22 Alkaline Phosphatase 57 Total Protein 6.1 L Albumin 3.2 L D Albumin/Globulin Ratio 1.1
== END 2018-05-13 16:19 | disposition home or self-care (01) ==
LOC: H.ER 23:08 → H.ERHOLD 05-12 05:16 → H.MEDSURG1 05-12 09:05
PROVIDERS: ADMIT Family Medicine; ATTEND Family Medicine
DX: K52.9 Noninfective gastroenteritis and colitis, unspecified (principal); K21.9 Gastro-esophageal reflux disease without esophagitis; N39.0 Urinary tract infection, site not specified; I10 Essential (primary) hypertension; G89.29 Other chronic pain; H91.92 Unspecified hearing loss, left ear; J44.9 Chronic obstructive pulmonary disease, unspecified; E78.00 Pure hypercholesterolemia, unspecified; M19.90 Unspecified osteoarthritis, unspecified site; F41.9 Anxiety disorder, unspecified; F32.9 Major depressive disorder, single episode, unspecified; Z23 Encounter for immunization
CPT/HCPCS: 36415; 74177; 80053; 81003; 82948; 83690; 83735; 84100; 85025; 85027; 90732; 93005; 96374; 99285; G0009; G0378; J0696; J0744; J1200; J1885; J2270; J2405; J2550; J7030; J7120; Q9967